=== PATIENT | female | born 1980 | race Caucasian/White ===

== ENCOUNTER → 2021-08-19 09:49 | Outpatient (BNVA) | payer SELFPAY | PROVIDERS: Visit Provider Obstetrics & Gynecology | DX: E03.9 Hypothyroidism, unspecified (principal); E66.01 Morbid (severe) obesity due to excess calories; Z68.43 Body mass index [BMI] 50.0-59.9, adult | CPT/HCPCS: 83036; 83525; 84443 ==

== ENCOUNTER → 2021-09-22 08:34 | Outpatient (BNVA) | payer SELFPAY | PROVIDERS: PCP Family Medicine; Visit Provider Obstetrics & Gynecology | DX: E03.9 Hypothyroidism, unspecified (principal) | CPT/HCPCS: 84443 ==

== ENCOUNTER → 2021-11-24 14:07 | Outpatient (BNVA) | payer SELFPAY | PROVIDERS: PCP Family Medicine; Visit Provider Obstetrics & Gynecology | DX: T83.32XA Displacement of intrauterine contraceptive device, initial encounter (principal); Y76.8 Miscellaneous obstetric and gynecological devices associated with adverse incidents, not elsewhere classified; N85.4 Malposition of uterus; R93.89 Abnormal findings on diagnostic imaging of other specified body structures | CPT/HCPCS: 76830 ==

== ENCOUNTER 2021-11-24 15:11 | Outpatient (CLI) | payer SELFPAY ==
--- NOTE | 2021-11-24 15:27 | XR_ITS ---
WS: [id number] Exam: XR pelvis 1-2V* [id number] Date/Time of Exam: 11/24/2021 3:27 PM Reason For Exam: [id number] - Displacement of intrauterine contraceptive dev... No fracture or dislocation. No obvious radiopaque IUD noted in the pelvis. Soft tissues are unremarka ble. Minimal degenerative changes of the hips and SI joints. XR/XR pelvis 1-2V* [id number] IMPRESSION: 1. No radiopaque IUD identified in the pelvis. Additional minor findings.
== END 2021-11-24 15:12 | disposition home or self-care (01) ==
LOC: RAD 15:24
PROVIDERS: PCP Family Medicine; Visit Provider Obstetrics & Gynecology
DX: T83.32XA Displacement of intrauterine contraceptive device, initial encounter (principal)
CPT/HCPCS: 72170

== ENCOUNTER 2022-01-04 13:59 | Outpatient (CLI) | payer SELFPAY ==
--- NOTE | 2022-01-04 14:45 | XR_ITS ---
WS: [id number] Pelvis, AP view, 01/04/2022 Clinical Data: Z30.431 - Encounter for routine checking of intrauterine ... Comparison: AP pelvis, 11/24/2021. Findings: No fractures or dislocations are seen. The SI joints and pubic symphysis are intact. The soft tissues are not remarkable. XR/XR pelvis 1-2V* [id number] Impression: Negative AP pelvis.
== END 2022-01-04 14:00 | disposition home or self-care (01) ==
LOC: RAD 14:00
PROVIDERS: PCP Family Medicine; Visit Provider Obstetrics & Gynecology
DX: Z30.431 Encounter for routine checking of intrauterine contraceptive device (principal)
CPT/HCPCS: 72170

== ENCOUNTER → 2022-02-13 10:58 | Outpatient (BNVA) | payer SELFPAY | PROVIDERS: PCP Family Medicine; Visit Provider Obstetrics & Gynecology | DX: E66.01 Morbid (severe) obesity due to excess calories (principal); Z68.41 Body mass index [BMI] 40.0-44.9, adult | CPT/HCPCS: 83036; 83525; 84443 ==

== ENCOUNTER → 2023-03-22 11:00 | Outpatient (BNVA) | payer MEDICAID, SELFPAY | PROVIDERS: PCP Family Medicine; Visit Provider Obstetrics & Gynecology | DX: E03.9 Hypothyroidism, unspecified (principal) | CPT/HCPCS: 84443 ==

== ENCOUNTER → 2024-11-27 12:28 | Outpatient (BNVA) | payer MEDICAID, SELFPAY | PROVIDERS: PCP Family Medicine; Visit Provider Obstetrics & Gynecology | DX: E28.2 Polycystic ovarian syndrome (principal) | CPT/HCPCS: 83001; 84443 ==